=== PATIENT | female | born 1950 | race Caucasian/White ===

== ENCOUNTER → 2016-05-31 16:26 | Outpatient (CLI) | payer BC, MEDICARE | END | disposition home or self-care (01) | LOC: D.MAMMO 11:30 | DX: R92.8 Other abnormal and inconclusive findings on diagnostic imaging of breast (principal) ==

== ENCOUNTER 2019-05-31 17:39 | Inpatient (IN) | payer BC, MEDICARE ==
[~2019-05-31] VITALS: Ht 162.6 cm; Wt 78.2 kg
[2019-07-03] MEDS ORDERED: LISINOPRIL10 MG PO (11:35)
[2019-07-03] MEDS ORDERED: ZYLOPRIM300 MG PO (11:35)
[2019-07-03] MEDS ORDERED: LOZOL 2.5 MG T2.5 MG PO (11:36)
[2019-07-03] MEDS ORDERED: ESTRACE (11:37)
[2019-07-03] MEDS ORDERED: PRAVACHOL40 MG PO (11:37)
[2019-07-03] MEDS ORDERED: MOBIC7.5 MG PO (11:38)
[2019-07-03] MEDS ORDERED: ULTRAM50 MG PO (11:38)
[2019-07-03] MEDS ORDERED: ROBAXIN (11:39)
[2019-07-03] MEDS ORDERED: TEMAZEPAM30 MG (11:40)
[2019-07-03] MEDS ORDERED: MULTI-DAY VITAM1 TAB PO (11:41)
[2019-07-03] MEDS ORDERED: SYNTHROID50 MCG PO (11:41)
[2019-07-03] MEDS ORDERED: KLOR-CON M2020 MEQ PO (11:41)
[2019-07-03] MEDS ORDERED: COLACE100 MG PO (11:42)
[2019-07-03] MEDS ORDERED: GRAPE SEED (11:42)
[2019-07-03] MEDS ORDERED: TUMERIC (11:42)
[2019-07-03] MEDS ORDERED: GLOCOSAMINE (11:42)
[2019-07-03] MEDS ORDERED: FAMOTIDINE10 MG (11:43)
[2019-07-03] MEDS ORDERED: PROBIOTIC BLEN1 EACH (11:43)
[2019-07-03 12:05] LABS: CALC OSMOLALITY 281 mosm/kg (275-300); CARBON DIOXIDE 32.6 mmol/L (21.0-32.0); CHLORIDE - SERUM 102 mmol/L (98-107); CREATININE - SERUM 0.8 mg/dL (0.6-1.3); GLUCOSE 116 mg/dL (74-106); POTASSIUM - SERUM 3.4 mmol/L (3.5-5.1); SODIUM 139 mmol/L (136-145); UREA NITROGEN 20 mg/dL (7-18); eGFR NON AFRICAN AMERICAN 75 mL/min (90-120)
[2019-07-03 12:17] LABS: BASOPHILS 0.4 % (0-2); EOSINOPHILS 8.1 % (0-7); HEMATOCRIT 38.7 % (36.0-48.0); HEMOGLOBIN 12.6 g/dL (12-16); IMMATURE GRANULOCYTES 0.2 % (0-5); LYMPHOCYTES 25.4 % (15-50); MCH 30.6 pg (26.0-34.0); MCHC 32.6 g/dL (31.0-37.0); MCV 93.9 fL (80.0-100.0); MEAN PLATELET VOLUME 10.3 fL (7.4-10.4); MONOCYTES 5.5 % (2-11); NEUTROPHILS 60.4 % (40-80); PLATELET COUNT 275 10x3/uL (130-400); RBC 4.12 10x6/uL (4.00-5.40); WBC 9.2 10x3/uL (4.8-10.8)
[2019-07-03 12:21] LABS: APTT 25.9 SECONDS (22.8-39.4); INR 0.91 (0.85-1.17); PROTIME 12.3 SECONDS (11.6-15.0)
[2019-07-03 12:24] LABS: APPEARANCE HAZY (CLEAR); BILIRUBIN NEGATIVE (NEGATIVE); COLOR YELLOW (YELLOW); GLUCOSE NEGATIVE (NEGATIVE); KETONE NEGATIVE (NEGATIVE); NITRITE NEGATIVE (NEGATIVE); PROTEIN NEGATIVE (NEGATIVE); UROBILINOGEN NORMAL (NORMAL)
[2019-07-09] VITALS (10 sets, daily range): BP systolic 111–159; BP diastolic 53–87; Ht 162.6 cm; Wt 78.2 kg
--- NOTE | 2019-07-09 15:14 | NUR ---
1458-HIBICLENSE/ALCOHOL PREP PRIOR TO CHLORAPREP
--- NOTE | 2019-07-09 16:56 | NUR ---
1655 REPORT GIVEN TO VIDHYA GREEN RN
--- NOTE | 2019-07-09 16:58 | NUR ---
CARE ASSUMED FROM VAN STROUD RN. REPORT RECEIVED.
--- NOTE | 2019-07-09 17:45 | NUR ---
RECEIVED TO ROOM 1211 VIA BED FROM PACU. A/OX3. AT BEDSIDE. VSS. DRESSING TO RIGHT KNEE DRY AND INTACT. DENIES NEEDS.
--- NOTE | 2019-07-09 19:25 | NUR ---
PUT PATIENT ON CPM MACHINE. APPLIED FRESH ICE PACK. PATIENT DENIES OTHER NEEDS AT THIS TIME. BED IN LOWEST POSITION AND CALL LIGHT WITHIN REACH. ENCOURAGED THE PATIENT TO CALL IF SHE HAS NEEDS. WILL CONTINUE TO MONITOR.
--- NOTE | 2019-07-09 21:45 | NUR ---
ADMINISTERED MEDS PER ORDERS. PATIENT DENIES OTHER NEEDS AT THIS TIME. BED IN LOWEST POSITION AND CALL LIGHT WITHIN REACH. ENCOURAGED THE PATIENT TO CALL IF SHE HAS NEEDS. WILL CONTINUE TO MONITOR.
--- NOTE | 2019-07-09 22:30 | NUR ---
TOOK PATIENT OFF CPM MACHINE
--- NOTE | 2019-07-09 22:32 | NUR ---
ADMINISTERED PAIN MED PER PATIENT REQUEST
--- NOTE | 2019-07-09 23:01 | NUR ---
ADMINISTERED ZOFRAN FOR NAUSEA AND VOMITING
--- NOTE | 2019-07-09 23:11 | NUR ---
PATIENT VOIDED 200ML
--- NOTE | 2019-07-10 05:05 | NUR ---
ASSISTED PATIENT ON AND OFF BEDPAN. PATIENT VOIDED 400ML.
[2019-07-10 05:07] VITALS: BP 100/64
--- NOTE | 2019-07-10 05:20 | NUR ---
CPM MACHINE ON
[2019-07-10 08:04] VITALS: BP 110/60
--- NOTE | 2019-07-10 08:23 | OP ---
PATIENT NAME: SYLVESTER COATES MEDICAL RECORD: [id number] :46 LOCATION:D. D.1211 ADMISSION DATE:07/09/19 SURGEON: HEMA WHEELER DO DATE OF OPERATION: 07/09/2019 PROCEDURE PERFORMED: Right total knee arthroplasty. PREOPERATIVE DIAGNOSIS: Right knee osteoarthritis. POSTOPERATIVE DIAGNOSIS: Right knee osteoarthritis. INDICATIONS: Ms. Coates is a 69-year-old female who has gone through several rounds of injections and other means of nonoperative surgical management for her right knee. She is tiered dealing with pain and could not handle anymore, affecting her activities of daily living. She wants something done surgically. We informed her of the risks including infection, bleeding, damage to nerves and vessels, fracture, need for further surgery, failure of implants, blood clots, damage to nerves and vessels and even and she signed the consent. SURGEON: Hema Wheeler DO DESCRIPTION OF PROCEDURE: The patient received adductor canal block by Anesthesia in the preoperative area. She was taken to the operative suite in a supine position, given general anesthetic and LMA was placed. She was given 2 grams Ancef, 8 mg gentamicin, and a gram of TXA. We then prepped and draped the right lower extremity. A timeout was performed and everyone was in agreement with the correct side, site, patient, and procedure. Incision was then marked out and covered in Ioban. We used a 10 blade scalpel and made an incision and dissected carefully down the capsule, did a medial parapatellar approach. Through the capsule with a fresh 10 blade scalpel, part of fat pad was removed. The bleeding was coagulated with Aquamantys throughout the procedure. Patella was then everted and milled down and measured to be at 31. I then entered the femoral canal and did the distal femur cut and proximal tibia cut measuring up the low side as well as the axilla in the lateral side. Posterolateral had more wear on the tibia than the medial side. I cut that and removed menisci and 10 extension block fit well. Then, the femur was measured to be 65. We did the 4-in-1 cutting block put the trial on and the fluid in the tibial tray and poly marked a rotation, drilled the holes for the patella and drilled the lug holes in the femur, exposed the tibia and measured it to be a 67 cruciate tibia. It was drilled and reamed and punched extra holes put in the tibia for the cement. Cement was mixed. It was irrigated out and the cement was put in the tibial implant packed in place. Excess cement was removed. Femur was then impacted on and a 10 poly put in between them, brought to extension and the patella was irrigated out and cement was put in the patellar holes and on the patella and squeezed into place, held while cement dried. Excess cement was removed and then put the Betadine, povidone iodine solution with 500 mL normal saline in the knee that sit for 3 minutes was then irrigated out with more than a liter of normal saline. We then trialled 12E poly anterior stabilized fit best with good stability to varus and valgus stress in flexion and extension and good range of motion. We then irrigated one more time, put the Portia powder, vancomycin and tobramycin powder in the knee, closed capsule with #2 Ethibond in giuolo-if-tkjdn fashion. This was done by Marlon Rm and Chemo De La Torre after I put in the first 2 capsular stitches, both certified surgical virtual assistant for advertisers and this procedure cannot be done without them. They closed the skin with 2-0 Vicryl in interrupted fashion. ZipLine placed on the knee. Adaptic, 4 x 4s, OPERATIVE REPORT [id number] SYLVESTER COATES ABD, Webril, Roldan wrap and PRATIBHA stocking then placed on the leg. She was awakened and taken to recovery in stable condition. Blood loss approximately 250 mL. COMPLICATIONS: None. TRANSINT:[id number] Voice Confirmation ID: [id number] DOCUMENT ID: [id number] HMEA WHEELER DO at 0823 CC: [id number] DICTATION DATE: 07/09/19 1627 SPACE CONTROL AGENT: 07/10/19 0029 ADM IN [place] [id number] [place] [address]
[2019-07-10 08:57] LABS: HEMATOCRIT 32.2 % (36.0-48.0); HEMOGLOBIN 10.2 g/dL (12-16); MCH 29.9 pg (26.0-34.0); MCHC 31.7 g/dL (31.0-37.0); MCV 94.4 fL (80.0-100.0); MEAN PLATELET VOLUME 10.4 fL (7.4-10.4); RBC 3.41 10x6/uL (4.00-5.40); WBC 14.1 10x3/uL (4.8-10.8)
--- NOTE | 2019-07-10 10:19 | MORECARE ---
CASE MANAGEMENT DISCHARGE SUMMARY PATIENT: SYLVESTER DOLAN UNIT: [id number] ADM DATE: 07/09/19 AGE: 69 : 48 SEX: F ROOM/BED: D.1211 AUTHOR: KEVIN WASHINGTON PHYSICIAN: REFERRING PHYSICIAN: VAN WHEELER DO DATE OF SERVICE: 07/10/19 Discharge Plan Patient Name: SYLVESTER DOLAN Facility: [facility]:[place] : 1950 Planned Disposition: Anticipated Discharge Date: Discharge Date: Expected LOS: Initial Reviewer: [email or web address] Initial Review Date: 07/09/2019 Generated: 07/10/19 11:19 am Patient Name: SYLVESTER DOLAN Page 36531 at 1019 All edits/amendments must be made on the electronic document DICTATION DATE: 07/10/19 1019 ALUMNI RELATIONS MANAGER: CONOR 07/10/19 1019 RPT#: [id number] DC DATE: STATUS: ADM IN [facility] [address] [place] [address] END OF REPORT
--- NOTE | 2019-07-10 10:26 | MORECARE ---
CASE MANAGEMENT DISCHARGE SUMMARY PATIENT: SYLVESTER COATES UNIT: [id number] ADM DATE: 07/09/19 AGE: 69 : 48 SEX: F ROOM/BED: D.1211 AUTHOR: KEVIN WASHINGTON PHYSICIAN: REFERRING PHYSICIAN: VAN WHEELER DO DATE OF SERVICE: 07/10/19 Discharge Plan Patient Name: SYLVESTER COATES [facility] [facility] 1950 Planned Disposition: Anticipated Discharge Date: Discharge Date: Expected LOS: Initial Reviewer: [email or web address] Initial Review Date: 07/09/2019 Generated: 07/10/19 11:25 am DCPIA - Discharge Planning Initial Assessment Updated by [email or web address]: Amanda Pina on 07/10/19 10:20 am * Is the patient Alert and Oriented? Yes * How many steps to enter\exit or inside your home? * PCP Dr. Thornton * Pharmacy [facility] * Preadmission Environment Home with Family * ADLs Independent * Equipment Bedside Commode Walker * Other Equipment Polar Pack * List name and contact numbers for known caregivers / representatives who currently or will assist patient after discharge: Dinesh Coates spouse) [phone] * Verbal permission to speak to the caregivers and representatives has been obtained from the patient. Yes * Community resources currently utilized None * Please name any agencies selected above. CREDIT COLLECTION SPECIALIST Outpatient Therapy * Additional services required to return to the preadmission environment? No * Can the patient safely return to the preadmission environment? Yes * Has this patient been hospitalized within the prior 30 days at any hospital? No Last DP export: 07/10/19 9:19 a Patient Name: SYLVESTER COATES Page 97697 at 1026 All edits/amendments must be made on the electronic document DICTATION DATE: 07/10/19 1025 DIGITAL CONTENT SPECIALIST: CONOR 07/10/19 1025 RPT#: [id number] DC DATE: STATUS: ADM IN [facility] [address] [place] [address] END OF REPORT
--- NOTE | 2019-07-10 12:46 | MORECARE ---
CASE MANAGEMENT DISCHARGE SUMMARY PATIENT: SYLVESTER COATES UNIT: [id number] ADM DATE: 07/09/19 AGE: 69 : 48 SEX: F ROOM/BED: D.1211 AUTHOR: KEVIN WASHINGTON PHYSICIAN: REFERRING PHYSICIAN: VAN WHEELER DO DATE OF SERVICE: 07/10/19 Discharge Plan Patient Name: SYLVESTER COATES Facility: [facility]:[place] : 1950 Planned Disposition: Anticipated Discharge Date: Discharge Date: Expected LOS: Initial Reviewer: [email or web address] Initial Review Date: 07/09/2019 Generated: 07/10/19 1:45 pm Comments DCP- Discharge Planning Updated by [email or web address]: Amanda Pina on 07/10/19 11:[address] CM met with patient to discuss initial discharge planning. Patient is in agreement to proceed with the assessment with her present. Patient reports that she lives at home independently with her spouse. Patient is alert/oriented. Stairs/steps: 0. PCP: . Pharmacy: [facility]. Patient states she has been able to obtain all of her prescribed medications. HHS: No. Still works. DME: CPM, Walker, BSC, Polar Pack. Patient gives permission to speak with family members/care givers. Emergency contact: Dinesh Coates (spouse) [phone]. Patient is Independent with all ADL's, medication management CLINICAL QUALITY ASSURANCE SPECIALIST. CM discussed the availability of HH, Rehab, DME services. Patient request OP Therapy with STACK YIELD ENGINEER. Patient denies being hospitalized within the past 30 days. Patient denies the use of community resources CLINICAL QUALITY ASSURANCE SPECIALIST. Transportation at time of discharge: Spouse. CM will assist PRN with DC needs/plans. DCPIA - Discharge Planning Initial Assessment Updated by [email or web address]: Amanda Pina on 07/10/19 10:20 am * Is the patient Alert and Oriented? Yes * How many steps to enter\exit or inside your home? * PCP Dr. Thornton * Pharmacy [facility] * Preadmission Environment Home with Family * ADLs Independent * Equipment Bedside Commode Walker * Other Equipment Polar Pack * List name and contact numbers for known caregivers / representatives who currently or will assist patient after discharge: Dinesh Coates spouse) [phone] * Verbal permission to speak to the caregivers and representatives has been obtained from the patient. Yes * Community resources currently utilized None * Please name any agencies selected above. STACK YIELD ENGINEER Outpatient Therapy * Additional services required to return to the preadmission environment? No * Can the patient safely return to the preadmission environment? Yes * Has this patient been hospitalized within the prior 30 days at any hospital? No Last DP export: 07/10/19 9:26 a Patient Name: SYLVESTER COATES Page 09838 at 1246 All edits/amendments must be made on the electronic document DICTATION DATE: 07/10/19 1245 NETBACKUP ADMINISTRATOR: CONOR 07/10/19 1245 RPT#: [id number] DC DATE: STATUS: ADM IN [facility] [address] [place] [address] END OF REPORT
--- NOTE | 2019-07-10 14:18 | MORECARE ---
CASE MANAGEMENT DISCHARGE SUMMARY PATIENT: SYLVESTER COATES UNIT: [id number] ADM DATE: 07/09/19 AGE: 69 : 48 SEX: F ROOM/BED: D.1211 AUTHOR: PADMINI,KEVIN PHYSICIAN: REFERRING PHYSICIAN: VAN WHEELER DO DATE OF SERVICE: 07/10/19 Discharge Plan Patient Name: SYLVESTER COATES Facility: [facility]:[place] : 1950 Planned Disposition: Anticipated Discharge Date: Discharge Date: Expected LOS: Initial Reviewer: [email or web address] Initial Review Date: 07/09/2019 Generated: 07/10/19 3:17 pm DCP- Discharge Planning Updated by [email or web address]: Amanda Pina on 07/10/19 11:[address] CM met with patient to discuss initial discharge planning. Patient is in agreement to proceed with the assessment with her present. Patient reports that she lives at home independently with her spouse. Patient is alert/oriented. Stairs/steps: 0. PCP: . Pharmacy: [facility]. Patient states she has been able to obtain all of her prescribed medications. HHS: No. Still works. DME: CPM, Walker, BSC, Polar Pack. Patient gives permission to speak with family members/care givers. Emergency contact: Dinesh Coates (spouse) [phone]. Patient is Independent with all ADL's, medication management SYSTEM ADMINISTRATION ADVISOR. CM discussed the availability of HH, Rehab, DME services. Patient request OP Therapy with DEVELOPMENT ENG. Patient denies being hospitalized within the past 30 days. Patient denies the use of community resources SYSTEM ADMINISTRATION ADVISOR. Transportation at time of discharge: Spouse. CM will assist PRN with DC needs/plans. DCPIA - Discharge Planning Initial Assessment Updated by [email or web address]: Amanda Pina on 07/10/19 10:20 am * Is the patient Alert and Oriented? Yes * How many steps to enter\exit or inside your home? * PCP Dr. Thornton * Pharmacy [facility] * Preadmission Environment Home with Family * ADLs Independent * Equipment Bedside Commode Walker * Other Equipment Polar Pack * List name and contact numbers for known caregivers / representatives who currently or will assist patient after discharge: Dinesh Coates spouse) [phone] * Verbal permission to speak to the caregivers and representatives has been obtained from the patient. Yes * Community resources currently utilized None * Please name any agencies selected above. DEVELOPMENT ENG Outpatient Therapy * Additional services required to return to the preadmission environment? No * Can the patient safely return to the preadmission environment? Yes * Has this patient been hospitalized within the prior 30 days at any hospital? No Last DP export: 07/10/19 11:46 a Patient Name: SYLVESTER COATES Page 07262 at 1418 All edits/amendments must be made on the electronic document DICTATION DATE: 07/10/191416 MEDICAL TYPIST: CONOR 07/10/191416 RPT#: [id number] DC DATE: STATUS: ADM IN [facility] [address] [place] [address] END OF REPORT
[2019-07-10 19:56] VITALS: BP 115/58
--- NOTE | 2019-07-10 20:00 | NUR ---
ALERT RESTING IN BED CPM IN USE, DENIES PAIN OR NEEDS AT THIS TIME, SEE SHIFT ASSESSMENT, CALL LIGHT IN REACH
[2019-07-11 00:04] VITALS: BP 113/54
[2019-07-11 04:30] VITALS: BP 123/60
[2019-07-11 07:49] VITALS: BP 129/63
[2019-07-11 07:57] LABS: HEMATOCRIT 32.4 % (36.0-48.0); MCH 29.8 pg (26.0-34.0); MCHC 30.9 g/dL (31.0-37.0); RBC 3.36 10x6/uL (4.00-5.40); RDW 14.4 % (11.5-14.5); WBC 10.6 10x3/uL (4.8-10.8)
[2019-07-11 08:19] LABS: MCV 96.4 fL (80.0-100.0)
--- NOTE | 2019-07-11 08:23 | MORECARE ---
CASE MANAGEMENT DISCHARGE SUMMARY PATIENT: SYLVESTER COATES UNIT: [id number] ADM DATE: 07/09/19 AGE: 69 : 48 SEX: F ROOM/BED: D.1211 AUTHOR: PADMINI,KEVIN PHYSICIAN: REFERRING PHYSICIAN: VAN WHEELER DO DATE OF SERVICE: 07/11/19 Discharge Plan Patient Name: SYLVESTER COATES Facility: [facility]:[place] : 1950 Planned Disposition: Anticipated Discharge Date: Discharge Date: Expected LOS: Initial Reviewer: [email or web address] Initial Review Date: 07/09/2019 Generated: 07/11/19 9:22 am DCP- Discharge Planning Updated by [email or web address]: Amanda Pina on 07/10/19 11:[address] CM met with patient to discuss initial discharge planning. Patient is in agreement to proceed with the assessment with her present. Patient reports that she lives at home independently with her spouse. Patient is alert/oriented. Stairs/steps: 0. PCP: . Pharmacy: [facility]. Patient states she has been able to obtain all of her prescribed medications. HHS: No. Still works. DME: CPM, Walker, BSC, Polar Pack. Patient gives permission to speak with family members/care givers. Emergency contact: Dinesh Coates (spouse) [phone]. Patient is Independent with all ADL's, medication management PRODUCTION ENGINE REPAIRER. CM discussed the availability of HH, Rehab, DME services. Patient request OP Therapy with SPANISH PROFESSOR. Patient denies being hospitalized within the past 30 days. Patient denies the use of community resources PRODUCTION ENGINE REPAIRER. Transportation at time of discharge: Spouse. CM will assist PRN with DC needs/plans. DCPIA - Discharge Planning Initial Assessment Updated by [email or web address]: Amanda Pina on 07/10/19 10:20 am * Is the patient Alert and Oriented? Yes * How many steps to enter\exit or inside your home? * PCP Dr. Thornton * Pharmacy [facility] * Preadmission Environment Home with Family * ADLs Independent * Equipment Bedside Commode Walker * Other Equipment Polar Pack * List name and contact numbers for known caregivers / representatives who currently or will assist patient after discharge: Dinesh Coates spouse) [phone] * Verbal permission to speak to the caregivers and representatives has been obtained from the patient. Yes * Community resources currently utilized None * Please name any agencies selected above. SPANISH PROFESSOR Outpatient Therapy * Additional services required to return to the preadmission environment? No * Can the patient safely return to the preadmission environment? Yes * Has this patient been hospitalized within the prior 30 days at any hospital? No Last DP export: 07/10/19 1:18 p Patient Name: SYLVESTER COATES Page [id number] at 0823 All edits/amendments must be made on the electronic document DICTATION DATE: 07/11/19822 FOUNDRY HAND: CONOR 07/11/19822 RPT#: [id number] DC DATE: STATUS: ADM IN [facility] [address] [place] [address] END OF REPORT
[2019-07-11] MEDS ORDERED: HYDROCODON-ACE1 EA10 PO (08:30)
[2019-07-11] MEDS ORDERED: ELIQUIS2.5 MG PO (08:30)
[2019-07-11] MEDS ORDERED: VISTARIL50 MG PO (08:30)
[2019-07-11] MEDS ORDERED: ZOFRAN ODT4 MG/UDTAB PO (08:31)
[2019-07-11] MEDS ORDERED: KEFLEX500 MG PO (08:31)
--- NOTE | 2019-07-11 09:01 | MORECARE ---
CASE MANAGEMENT DISCHARGE SUMMARY PATIENT: SYLVESTER COATES UNIT: [id number] ADM DATE: 07/09/19 AGE: 69 : 48 SEX: F ROOM/BED: D.1211 AUTHOR: PADMINI,DOC PHYSICIAN: REFERRING PHYSICIAN: VAN WHEELER DO DATE OF SERVICE: 07/11/19 Discharge Plan Patient Name: SYLVESTER COATES Facility: [facility]:[place] : 1950 Planned Disposition: Anticipated Discharge Date: Discharge Date: Expected LOS: Initial Reviewer: [email or web address] Initial Review Date: 07/09/2019 Generated: 07/11/19 10:00 am Comments DCP- Discharge Planning Updated by [email or web address]: Alizemomo Germain on 07/11/19 7:[address] DC PLAN: Return home with her and OP PT @ [facility] Therapy department. PT APPOINTMENT MADE:July 15 @ 0900. Patient to arrive at 0845. CM called OP PT, spoke Dawit who gave appointment date and time. Patient gave patient copy of OP order to include date and time of appointment. CM faxed order to OP PT as well. Patient denied further dc needs at this time. She verified equipment to home has been delivered: walker,bsc,ice pack, and cpm. Her will transport her at dc and will transport her to and from therapy. Patient agrees that dc plan is safe. No furhter dc needs known at this time. DCP- Discharge Planning Updated by [email or web address]: Amanda Pina on 07/10/19 11:[address] CM met with patient to discuss initial discharge planning. Patient is in agreement to proceed with the assessment with her present. Patient reports that she lives at home independently with her spouse. Patient is alert/oriented. Stairs/steps: 0. PCP: . Pharmacy: [facility]. Patient states she has been able to obtain all of her prescribed medications. HHS: No. Still works. DME: CPM, Walker, BSC, Polar Pack. Patient gives permission to speak with family members/care givers. Emergency contact: Dinesh Coates (spouse) [phone]. Patient is Independent with all ADL's, medication management DIRECTOR CALL CENTER SALES. CM discussed the availability of HH, Rehab, DME services. Patient request OP Therapy with OPHTHALMIC MEDICAL TECHNOLOGIST. Patient denies being hospitalized within the past 30 days. Patient denies the use of community resources DIRECTOR CALL CENTER SALES. Transportation at time of discharge: Spouse. CM will assist PRN with DC needs/plans. DCPIA - Discharge Planning Initial Assessment Updated by [email or web address]: Amanda Pina on 07/10/19 10:20 am * Is the patient Alert and Oriented? Yes * How many steps to enter\exit or inside your home? * PCP Dr. Thornton * Pharmacy [facility] * Preadmission Environment Home with Family * ADLs Independent * Equipment Bedside Commode Walker * Other Equipment Polar Pack * List name and contact numbers for known caregivers / representatives who currently or will assist patient after discharge: Dinesh Coates spouse) [phone] * Verbal permission to speak to the caregivers and representatives has been obtained from the patient. Yes * Community resources currently utilized None * Please name any agencies selected above. OPHTHALMIC MEDICAL TECHNOLOGIST Outpatient Therapy * Additional services required to return to the preadmission environment? No * Can the patient safely return to the preadmission environment? Yes * Has this patient been hospitalized within the prior 30 days at any hospital? No Last DP export: 07/11/19 7:23 a Patient Name: SYLVESTER COATES Page [id number] at 0901 All edits/amendments must be made on the electronic document DICTATION DATE: 07/11/19899 ZMT OPERATOR: CONOR 07/11/19899 RPT#: [id number] DC DATE: STATUS: ADM IN [facility] [address] [place] [address] END OF REPORT
--- NOTE | 2019-07-11 09:10 | NUR ---
PT ALERT X 4. BREATH SOUNDS CLEAR BILAT. IV TO LEFT HAND, SALINE LOCKED. INCISION TO RIGHT KNEE, WELL APPROXIMATED, DRESSING CHANGED. PT REPORTING PAIN OF 7/10, WILL MONITOR. BED LOW, CALL LIGHT IN REACH. NO OTHER NEEDS AT THIS TIME.
[2019-07-11 11:50] VITALS: BP 136/66
[2019-07-11 16:32] VITALS: BP 124/65
--- NOTE | 2019-07-11 20:00 | NUR ---
ALERT RESTING IN BED, CPM IN USE, DENIES PAIN OR NEEDS AT THIS TIME, SEE SHIFT ASSESSMENT, CALL LIGHT IN REACH
[2019-07-11 20:42] VITALS: BP 126/653
[2019-07-12 00:33] VITALS: BP 120/60
[2019-07-12 04:39] VITALS: BP 130/72
[2019-07-12 07:17] VITALS: BP 193/77
[2019-07-12 07:23] VITALS: BP 119/60
--- NOTE | 2019-07-12 09:21 | NUR ---
PT BEING ASSISTED BY THERAPY TO GET UP AND AMBULATE. RESP EVEN AND UNLABORED. PT FELICITAS WELL. DRESSING C/D/I TO RIGHT KNEE. DENIES FURTHER NEEDS AT THIS TIME. ENCOURAGED TO CALL WITH NEEDS. CONTINUE POC
--- NOTE | 2019-07-12 11:32 | MORECARE ---
CASE MANAGEMENT DISCHARGE SUMMARY PATIENT: SYLVESTER COATES UNIT: [id number] ADM DATE: 07/09/19 AGE: 69 : 48 SEX: F ROOM/BED: D.1211 AUTHOR: KEVIN WASHINGTON PHYSICIAN: REFERRING PHYSICIAN: VAN WHEELER DO DATE OF SERVICE: 07/12/19 Discharge Plan Patient Name: SYLVESTER COATES Facility: [facility]:[place] : 1950 Planned Disposition: Anticipated Discharge Date: Discharge Date: Expected LOS: Initial Reviewer: [email or web address] Initial Review Date: 07/09/2019 Generated: 07/12/19 12:31 pm Comments DCP- Discharge Planning Updated by [email or web address]: Amanda Pina on 07/12/19 10:[address] Met with patient to determine any new DC needs and she voices none. Patient's spouse will drive her home and scrap picker medications. DCP- Discharge Planning Updated by [email or web address]: Alize Germain on 07/11/19 7:[address] DC PLAN: Return home with her and OP PT @ [facility] Therapy department. PT APPOINTMENT MADE:July 15 @ 0900. Patient to arrive at 0845. CM called OP PT, spoke Dawit who gave appointment date and time. Patient gave patient copy of OP order to include date and time of appointment. CM faxed order to OP PT as well. Patient denied further dc needs at this time. She verified equipment to home has been delivered: walker,bsc,ice pack, and cpm. Her will transport her at dc and will transport her to and from therapy. Patient agrees that dc plan is safe. No furhter dc needs known at this time. DCP- Discharge Planning Updated by [email or web address]: Amanda Pina on 07/10/19 11:[address] CM met with patient to discuss initial discharge planning. Patient is in agreement to proceed with the assessment with her present. Patient reports that she lives at home independently with her spouse. Patient is alert/oriented. Stairs/steps: 0. PCP: . Pharmacy: [facility]. Patient states she has been able to obtain all of her prescribed medications. HHS: No. Still works. DME: CPM, Walker, BSC, Polar Pack. Patient gives permission to speak with family members/care givers. Emergency contact: Dinesh Coates (spouse) [phone]. 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 CM discussed the availability of HH, Rehab, DME services. Patient request OP Therapy with AUTOMOTIVE BRAKE SPECIALIST. Patient denies being hospitalized within the past 30 days. Patient denies the use of community resources INSERTING PRESS OPERATOR. Transportation at time of discharge: Spouse. CM will assist PRN with DC needs/plans. DCPIA - Discharge Planning Initial Assessment Updated by [id number]: Amanda Pina on 07/10/19 10:20 am * Is the patient Alert and Oriented? Yes * How many steps to enter\exit or inside your home? * PCP Dr. Thornton * Pharmacy [facility] * Preadmission Environment Home with Family * ADLs Independent * Equipment Bedside Commode Walker * Other Equipment Polar Pack * List name and contact numbers for known caregivers / representatives who currently or will assist patient after discharge: Dinesh Coates spouse) [phone] * Verbal permission to speak to the caregivers and representatives has been obtained from the patient. Yes * Community resources currently utilized None * Please name any agencies selected above. [facility]OMOT[facility] BRAKE SPECIALIST Outpatient Therapy * Additional services required to return to the preadmission environment? No * Can the patient safely return to the preadmission environment? Yes * Has this patient been hospitalized within the prior 30 days at any hospital? No Coverage Notice Reviewer: [id number] Donny Germain Notice Issued Date-Time: 07/11/2019 9:00 Notice Type: IM Discharge Notice Notice Delivered To: Patient Relationship to Patient: Psychology Department Chair Name: Delivery Method: HAND - Hand Delivered Chrystal Days: Prior Verbal Notification: Recipient Understood Notice: Yes Recipient Signature: Yes Med Rec Note Co-signed by Attending: Coverage Notice Comment: DC IMM delivered, explained, signed by the patient, and placed in his chart. Signed form also left with patient. Alize Germain RN , CCM Last DP export: 07/11/19 8:01 a Patient Name: SYLVESTER COATES Page [id number] at 1132 All edits/amendments must be made on the electronic document DICTATION DATE: 07/12/19 1131 LEAD CASE MANAGER: CONOR 07/12/19 1131 RPT#: [id number] DC DATE: STATUS: ADM IN [facility] [address] [place] [address] END OF REPORT
--- NOTE | 2019-07-12 12:15 | NUR ---
DISCHARGE PAPERWORK PROVIDED TO PT WITH PRESCRIPTIONS, COUPON FOR ELIQUIS AND APPOINTMENTS. DISCUSSED CONTINUATION OF HOME MEDS AND PRESCRIPTIONS. DISCUSSED ACTIVITY, S/S OF INFECTION OF WOUND. PT DENIES QUESTIONS OR CONCERNS.
--- NOTE | 2019-07-12 12:56 | NUR ---
PT TAKEN OUT VIA W/C TO PRIVATE VEHICLE WITH ALL PERSONAL BELONGINGS.
--- NOTE | 2019-07-12 13:24 | MORECARE ---
CASE MANAGEMENT DISCHARGE SUMMARY PATIENT: SYLVESTER COATES UNIT: [id number] ADM DATE: 07/09/19 AGE: 69 : 48 SEX: F ROOM/BED: D.1211 AUTHOR: PADMINI,KEVIN PHYSICIAN: REFERRING PHYSICIAN: VAN WHEELER DO DATE OF SERVICE: 07/12/19 Discharge Plan Patient Name: SYLVESTER COATES Facility: [facility]:[place] : 1950 Planned Disposition: Home Anticipated Discharge Date: 07/12/19 Discharge Date: 07/12/2019 Expected LOS: 3 Initial Reviewer: [email or web address] Initial Review Date: 07/09/2019 Generated: 07/12/19 2:24 pm Comments DCP- Discharge Planning Updated by [email or web address]: Amanda Pina on 07/12/19 10:[address] Met with patient to determine any new DC needs and she voices none. Patient's spouse will drive her home and pickle water pump operator medications. DCP- Discharge Planning Updated by [id number]: Alize Germain on 07/11/19 7:[address] DC PLAN: Return home with her and OP PT @ [facility] Therapy department. PT APPOINTMENT MADE:July 15 @ 0900. Patient to arrive at 0845. CM called OP PT, spoke Dawit who gave appointment date and time. Patient gave patient copy of OP order to include date and time of appointment. CM faxed order to OP PT as well. Patient denied further dc needs at this time. She verified equipment to home has been delivered: walker,bsc,ice pack, and cpm. Her will transport her at dc and will transport her to and from therapy. Patient agrees that dc plan is safe. No furhter dc needs known at this time. DCP- Discharge Planning Updated by [id number]: Amanda Pina on 07/10/19 11:[address] CM met with patient to discuss initial discharge planning. Patient is in agreement to proceed with the assessment with her present. Patient reports that she lives at home independently with her spouse. Patient is alert/oriented. Stairs/steps: 0. PCP: . Pharmacy: [facility]. Patient states she has been able to obtain all of her prescribed medications. HHS: No. Still works. DME: CPM, Walker, BSC, Polar Pack. Patient gives permission to speak with family members/care givers. Emergency contact: Dinesh Coates (spouse) [phone]. 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 CM discussed the availability of HH, Rehab, DME services. Patient request OP Therapy with COMMUNICATIONS EQUIPMENT SUPERVISOR. Patient denies being hospitalized within the past 30 days. Patient denies the use of community resources [employer]UB [employer]CI[employer]. Transportation at time of discharge: Spouse. CM will assist PRN with DC needs/plans. DCPIA - Discharge Planning Initial Assessment Updated by [id number]: Amanda Pina on 07/10/19 10:20 am * Is the patient Alert and Oriented? Yes * How many steps to enter\exit or inside your home? * PCP Dr. Thornton * Pharmacy [facility] * Preadmission Environment Home with Family * ADLs Independent * Equipment Bedside Commode Walker * Other Equipment Polar Pack * List name and contact numbers for known caregivers / representatives who currently or will assist patient after discharge: Dinesh Coates spouse) [phone] * Verbal permission to speak to the caregivers and representatives has been obtained from the patient. Yes * Community resources currently utilized None * Please name any agencies selected above. COMMUNICATIONS EQUIPMENT SUPERVISOR Outpatient Therapy * Additional services required to return to the preadmission environment? No * Can the patient safely return to the preadmission environment? Yes * Has this patient been hospitalized within the prior 30 days at any hospital? No Coverage Notice Reviewer: [id number] - Alize Germain Notice Issued Date-Time: 07/11/2019 9:00 Notice Type: IM Discharge Notice Notice Delivered To: Patient Relationship to Patient: 3D Modeler Name: Delivery Method: HAND - Hand Delivered Chrystal Days: Prior Verbal Notification: Recipient Understood Notice: Yes Recipient Signature: Yes Med Rec Note Co-signed by Attending: Coverage Notice Comment: DC IMM delivered, explained, signed by the patient, and placed in his chart. Signed form also left with patient. Alize Germain RN , [facility] Last DP export: 07/12/19 10:32 a Patient Name: SYLVESTER COATES Page 28913 at 1324 All edits/amendments must be made on the electronic document DICTATION DATE: 07/12/19 1324 BORING MILL OPERATOR FOR METAL: CONOR 07/12/19 1324 RPT#: [id number] DC DATE:07/12/19 STATUS: DIS IN [facility] [address] [facility] [place] [address] END OF REPORT
--- NOTE | 2019-07-12 14:13 | MORECARE ---
CASE MANAGEMENT DISCHARGE SUMMARY PATIENT: SYLVESTER COATES UNIT: [id number] ADM DATE: 07/09/19 AGE: 69 : 48 SEX: F ROOM/BED: D.1211 AUTHOR: PADMINI,KEVIN PHYSICIAN: REFERRING PHYSICIAN: VAN WHEELER DO DATE OF SERVICE: 07/12/19 Discharge Plan Patient Name: SYLVESTER COATES Facility: [facility]:[place] : 1950 Planned Disposition: Home Anticipated Discharge Date: 07/12/19 Discharge Date: 07/12/2019 Expected LOS: 3 Initial Reviewer: [email or web address] Initial Review Date: 07/09/2019 Generated: 07/12/19 3:12 pm Comments DCP- Discharge Planning Updated by [email or web address]: Amanda Pina on 07/12/19 10:[address] Met with patient to determine any new DC needs and she voices none. Patient's spouse will drive her home and picker box operator medications. DCP- Discharge Planning Updated by [email or web address]: Alize Germain on 07/11/19 7:[address] DC PLAN: Return home with her and OP PT @ [facility] Therapy department. PT APPOINTMENT MADE:July 15 @ 0900. Patient to arrive at 0845. CM called OP PT, spoke Dawit who gave appointment date and time. Patient gave patient copy of OP order to include date and time of appointment. CM faxed order to OP PT as well. Patient denied further dc needs at this time. She verified equipment to home has been delivered: walker,bsc,ice pack, and cpm. Her will transport her at dc and will transport her to and from therapy. Patient agrees that dc plan is safe. No furhter dc needs known at this time. DCP- Discharge Planning Updated by [email or web address]: Amanda Pina on 07/10/19 11:[address] CM met with patient to discuss initial discharge planning. Patient is in agreement to proceed with the assessment with her present. Patient reports that she lives at home independently with her spouse. Patient is alert/oriented. Stairs/steps: 0. PCP: . Pharmacy: [facility]. Patient states she has been able to obtain all of her prescribed medications. HHS: No. Still works. DME: CPM, Walker, BSC, Polar Pack. Patient gives permission to speak with family members/care givers. Emergency contact: Dinesh Coates (spouse) [phone]. 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 CM discussed the availability of HH, Rehab, DME services. Patient request OP Therapy with MANAGER IMAGING. Patient denies being hospitalized within the past 30 days. Patient denies the use of community resources ENGINEER OPERATIONS AND MAINTENANCE. Transportation at time of discharge: Spouse. CM will assist PRN with DC needs/plans. DCPIA - Discharge Planning Initial Assessment Updated by [email or web address]: Amanda Pina on 07/10/19 10:20 am * Is the patient Alert and Oriented? Yes * How many steps to enter\exit or inside your home? * PCP Dr. Thornton * Pharmacy [facility] * Preadmission Environment Home with Family * ADLs Independent * Equipment Bedside Commode Walker * Other Equipment Polar Pack * List name and contact numbers for known caregivers / representatives who currently or will assist patient after discharge: Dinesh Coates spouse) [phone] * Verbal permission to speak to the caregivers and representatives has been obtained from the patient. Yes * Community resources currently utilized None * Please name any agencies selected above. MANAGER IMAG[facility] Outpatient Therapy * Additional services required to return to the preadmission environment? No * Can the patient safely return to the preadmission environment? Yes * Has this patient been hospitalized within the prior 30 days at any hospital? No Coverage Notice Reviewer: [id number] - Alize Germain Notice Issued Date-Time: 07/11/2019 9:00 Notice Type: IM Discharge Notice Notice Delivered To: Patient Relationship to Patient: Health Care Marketing Manager Name: Delivery Method: HAND - Hand Delivered Chrystal Days: Prior Verbal Notification: Recipient Understood Notice: Yes Recipient Signature: Yes Med Rec Note Co-signed by Attending: Coverage Notice Comment: DC IMM delivered, explained, signed by the patient, and placed in his chart. Signed form also left with patient. Alize Germain RN , [facility] Last DP export: 07/12/19 12:24 p Patient Name: SYLVESTER COATES Page 65034 at 1413 All edits/amendments must be made on the electronic document DICTATION DATE: 07/12/191411 HAND SIZER: CONOR 07/12/19 141 RPT#: [id number] DC DATE:07/12/19 STATUS: DIS IN [facility] [address] [place] [address] END OF REPORT
== END 2019-07-12 12:56 | disposition home or self-care (01) | DRG 470 ==
LOC: D.SDCHOLD 07-09 09:15 → D.M3 07-09 11:10 → D.SDCHOLD 07-09 11:10 → D.M3 07-09 17:02
PROVIDERS: ADMIT Orthopaedic Surgery; ATTEND Orthopaedic Surgery
PROC: 0SRC0J9 Replacement of Right Knee Joint with Synthetic Substitute, Cemented, Open Approach (ICD-10-PCS; principal; 2019-07-09 13:10)
DX: M17.11 Unilateral primary osteoarthritis, right knee (principal); I10 Essential (primary) hypertension; K21.9 Gastro-esophageal reflux disease without esophagitis; R11.2 Nausea with vomiting, unspecified; T40.2X5A Adverse effect of other opioids, initial encounter; Y92.230 Patient room in hospital as the place of occurrence of the external cause